=== PATIENT | female | born 1995 | race African-American/Black ===

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

== ENCOUNTER 2017-05-25 23:19 | Emergency (ER) | payer SELFPAY ==
[~2017-05-25] VITALS: Ht 157.5 cm; Wt 49.9 kg
[2017-05-25 23:50] LABS: BILIRUBIN,URINE NEGATIVE (NEG); GLUCOSE,URINE NEGATIVE (NEG); NITRITE,URINE NEGATIVE (NEG); PH,URINE 5.5; PROTEIN,URINE NEGATIVE (NEG-TRACE); UROBILINOGEN,URINE 0.2 mg/dL (0.2 mg/dL)
[2017-05-25 23:57] LABS: BASO % 1 % (0-3); EOS % 9 % (0-3); HEMATOCRIT 38.5 % (36.0-47.0); HEMOGLOBIN 12.2 g/dL (12.0-15.5); LYMPH # 2.7 x10^3/uL (1.0-4.8); LYMPH % 35 % (24-48); MEAN CORPUSCULAR HEMOGLOBIN 25 pg (25-35); MEAN CORPUSCULAR HGB CONC 32 g/dL (31-37); MEAN CORPUSCULAR VOLUME 78 fL (79-100); MONO % 6 % (0-9); NEUT % 49 % (31-73); PLATELET COUNT 307 x10^3/uL (140-400); RED BLOOD COUNT 4.94 x10^6/uL (3.50-5.40); RED CELL DISTRIBUTION WIDTH 14.2 % (11.5-14.5); WHITE BLOOD COUNT 7.7 x10^3/uL (4.0-11.0)
[2017-05-25 23:58] LABS: BACTERIA,URINE MODERATE /HPF (0-FEW); RBC,URINE OCC /HPF (0-2); SQUAMOUS EPITHELIAL CELL,UR MOD /LPF
[2017-05-26] MEDS ORDERED: CONTRAST GIVEN MC PRN
[2017-05-26] MEDS ORDERED: IOHEXOL 300 MG/ML 75 ML VIAL IV ONE
[2017-05-26 00:05] LABS: CREATININE 0.9 mg/dL (0.6-1.0); GFR 96.6; POTASSIUM 3.7 mmol/L (3.5-5.1)
[2017-05-26 00:11] LABS: ALBUMIN 3.8 g/dL (3.4-5.0); TOTAL BILIRUBIN 0.3 mg/dL (0.2-1.0); TOTAL PROTEIN 7.7 g/dL (6.4-8.2)
[2017-05-26] MEDS ORDERED: fentaNYL PF VIAL 100 MCG/2 ML VIAL IV ONE (00:30)
[2017-05-26] MEDS ORDERED: KETOROLAC 30 MG/ML INJ. IV ONE (00:30)
[2017-05-26] MEDS ORDERED: ONDANSETRON PF 4 MG/2 ML VIAL. ONE (00:34)
[2017-05-26 00:45] VITALS: BP 126/78
[2017-05-26] MEDS ORDERED: ONDANSETRON PF 4 MG/2 ML VIAL. IV ONE (00:45)
--- NOTE | 2017-05-26 00:58 | RAD ---
INDICATION: rlq pain; Omni 300, 75ml COMPARISON: None. TECHNIQUE: Axial CT images were obtained through the abdomen and pelvis with intravenous contrast. One or more of the following individualized dose reduction techniques were utilized for this examination: 1. Automated exposure control; 2. Adjustment of the mA and/or kV according to patient size; 3. Use of iterative reconstruction technique. FINDINGS: Chest Base: Partially imaged without gross abnormality. Vessels: No abdominal aortic aneurysm. Liver/Biliary: No intrahepatic biliary duct dilation. Pancreas: No peripancreatic edema. Spleen: Normal. Kidneys/Adrenal: No hydronephrosis. Bladder: No definite adjacent inflammation. GI: No free air. No bowel dilation to suggest obstruction. 31 mm cystic lesion right adnexa. The appendix is partially seen and not grossly dilated in visualized portion. IMPRESSION: 1. No dilated loops of bowel to suggest obstruction. The suspected appendix is partially seen and does not appear grossly inflamed in the visualized portion. 2. Suspected cystic lesion of the right adnexa. 3. Moderate stool throughout the colon. Electronically signed by: Gino Ocasio MD (05/26/2017 12:54 AM) [facility]
[2017-05-26] MEDS ORDERED: ONDA4TAB10 PO (01:13)
[2017-05-26] MEDS ORDERED: HYDR-971 PO (01:13)
--- NOTE | 2017-05-26 01:13 | PHYS DOC ---
Past Medical History Past Medical History: Asthma, Other Additional Past Medical Histor: WPW Past Surgical History: No Surgical History Alcohol Use: Rarely Drug Use: Marijuana Adult General Chief Complaint Chief Complaint: ABDOMINAL PAIN HPI HPI Patient is a 22 year old female who is presenting to the emergency department for evaluation of right lower quadrant abdominal pain that has been going off and on for approximately 2 weeks. She says that she has intermittent nausea but no fevers chills dysuria hematuria vaginal bleeding vaginal discharge diarrhea constipation or prior abdominal surgeries. Patient says that she recently stopped taking control that does not think that she is . Patient has not been taking anything for pain. She says that the pain is not present and does not want anything for pain at this time. Review of Systems Review of Systems Constitutional: Denies fever or chills [] Cardiovascular: No additional information not addressed in HPI [] GI: + abdominal pain, nausea. No vomiting, bloody stools or diarrhea [] : Denies dysuria or hematuria [] Musculoskeletal: + back pain Current Medications Current Medications Current Medications Medications (Trade) Dose Ordered Sig/Jeffy Start Time Stop Time Status Last Admin Dose Admin Fentanyl Citrate (Fentanyl 2ml Vial) 50 mcg 1X ONCE 05/26/17 00:30 05/26/17 00:33 DC 05/26/17 00:42 50 MCG Info (Do NOT chart on this entry -- for MONITORING) 1 each PRN DAILY PRN 05/26/17 00:00 05/28/17 00:00 Iohexol (Omnipaque 300 Mg/ml) 75 ml 1X ONCE 05/26/17 00:00 05/26/17 00:01 DC 05/26/17 00:28 75 ML Ketorolac Tromethamine (Toradol) 30 mg 1X ONCE 05/26/17 00:30 05/26/17 00:33 DC 05/26/17 00:41 30 MG Ondansetron HCl (Zofran) 4 mg 1X ONCE 05/26/17 00:45 05/26/17 00:46 DC 05/26/17 00:41 4 MG Allergies Allergies Allergies Coded Allergies Type Severity Reaction Last Updated Verified No Known Drug Allergies 09/08/16 No Physical Exam Physical Exam Constitutional: Well developed, well nourished, no acute distress, non-toxic appearance. [] Cardiovascular:Heart rate regular rhythm, no murmur [] Lungs & Thorax: Bilateral breath sounds clear to auscultation [] Abdomen: Bowel sounds normal, soft, + RLQ AND R adnexal tenderness, no rebound or guarding, no masses, no pulsatile masses. [] Skin: Warm, dry, no erythema, no rash. [] Back: No tenderness, no CVA tenderness. [] Current Patient Data Vital Signs Vital Signs Date Time Temp Pulse Resp B/P (MAP) Pulse Ox O2 Delivery O2 Flow Rate FiO2 05/26/17 00:45 81 16 126/78 (94) 97 Room Air 05/25/17 23:25 98.1 98.1 Lab Values Laboratory Tests Test 05/25/17 23:20 05/25/17 23:44 05/25/17 23:51 Urine Collection Type Unknown Urine Color Yellow Urine Clarity Clear Urine pH 5.5 Urine Specific [place] 1.015 Urine Protein Negative mg/dL (NEG-TRACE) Urine Glucose (UA) Negative mg/dL (NEG) Urine Ketones (Stick) Negative mg/dL (NEG) Urine Blood Negative (NEG) Urine Nitrite Negative (NEG) Urine Bilirubin Negative (NEG) Urine Urobilinogen Dipstick 0.2 mg/dL (0.2 mg/dL) Urine Leukocyte Esterase Moderate (NEG) Urine RBC Occ /HPF (0-2) Urine WBC 5-10 /HPF (0-4) Urine Squamous Epithelial Cells Mod /LPF Urine Bacteria Moderate /HPF (0-FEW) Urine Mucus Mod /LPF POC Urine HCG, Qualitative Hcg negative (Negative) White Blood Count 7.7 x10^3/uL (4.0-11.0) Red Blood Count 4.94 x10^6/uL (3.50-5.40) Hemoglobin 12.2 g/dL (12.0-15.5) Hematocrit 38.5 % (36.0-47.0) Mean Corpuscular Volume 78 fL (79-100) L Mean Corpuscular Hemoglobin 25 pg (25-35) Mean Corpuscular Hemoglobin Concent 32 g/dL (31-37) Red Cell Distribution Width 14.2 % (11.5-14.5) Platelet Count 307 x10^3/uL (140-400) Neutrophils (%) (Auto) 49 % (31-73) Lymphocytes (%) (Auto) 35 % (24-48) Monocytes (%) (Auto) 6 % (0-9) Eosinophils (%) (Auto) 9 % (0-3) H Basophils (%) (Auto) 1 % (0-3) Neutrophils # (Auto) 3.8 x10^3uL (1.8-7.7) Lymphocytes # (Auto) 2.7 x10^3/uL (1.0-4.8) Monocytes # (Auto) 0.5 x10^3/uL (0.0-1.1) Eosinophils # (Auto) 0.7 x10^3/uL (0.0-0.7) Basophils # (Auto) 0.0 x10^3/uL (0.0-0.2) Sodium Level 138 mmol/L (136-145) Potassium Level 3.7 mmol/L (3.5-5.1) Chloride Level 102 mmol/L (98-107) Carbon Dioxide Level 28 mmol/L (21-32) Anion Gap 8 (6-14) Blood Urea Nitrogen 13 mg/dL (7-20) Creatinine 0.9 mg/dL (0.6-1.0) Estimated GFR (Cockcroft-Gault) 96.6 BUN/Creatinine Ratio 14 (6-20) Glucose Level 98 mg/dL (70-99) Calcium Level 9.0 mg/dL (8.5-10.1) Total Bilirubin 0.3 mg/dL (0.2-1.0) Aspartate Amino Transferase (AST) 14 U/L (15-37) L Alanine Aminotransferase (ALT) 21 U/L (14-59) Alkaline Phosphatase 105 U/L (46-116) Total Protein 7.7 g/dL (6.4-8.2) Albumin 3.8 g/dL (3.4-5.0) Albumin/Globulin Ratio 1.0 (1.0-1.7) Laboratory Tests 05/25/17 23:51 Laboratory Tests 05/25/17 23:51 EKG EKG [] Radiology/Procedures Radiology/Procedures INDICATION: rlq pain; Omni 300, 75ml COMPARISON: None. TECHNIQUE: Axial CT images were obtained through the abdomen and pelvis with intravenous contrast. One or more of the following individualized dose reduction techniques were utilized for this examination: 1. Automated exposure control; 2. Adjustment of the mA and/or kV according to patient size; 3. Use of iterative reconstruction technique. FINDINGS: Chest Base: Partially imaged without gross abnormality. Vessels: No abdominal aortic aneurysm. Liver/Biliary: No intrahepatic biliary duct dilation. Pancreas: No peripancreatic edema. Spleen: Normal. Kidneys/Adrenal: No hydronephrosis. Bladder: No definite adjacent inflammation. GI: No free air. No bowel dilation to suggest obstruction. 31 mm cystic lesion right adnexa. The appendix is partially seen and not grossly dilated in visualized portion. IMPRESSION: 1. No dilated loops of bowel to suggest obstruction. The suspected appendix is partially seen and does not appear grossly inflamed in the visualized portion. 2. Suspected cystic lesion of the right adnexa. 3. Moderate stool throughout the colon. Electronically signed by: Manuel Ocasio MD (05/26/2017 12:54 AM) [facility] DICTATED and SIGNED BY: MANUEL OCASIO MD DATE: 05/26/17 0046 Course & Med Decision Making Course & Med Decision Making Patient started getting some pain and nausea in the emergency department so she was given fentanyl Toradol and Zofran. Pain resolved and I reexamined her abdomen and she had no pain on repeat exam. She has no nausea or vomiting and her symptoms are not that severe so I do not think that she has torsion at this time. Certainly intermittent torsion is a possibility but there is no evidence of this. Patient does appear to have an ovarian cyst that is 3 mm in size on CT. Given patient appears well with normal vital signs benign repeat abdominal exam and workup she'll be discharged in stable condition with treatment for ovarian cyst and told to follow with a STAMP CLERK as soon as possible and come back to the ED sooner with worsening pain fevers vomiting or other general concerns. Patient aware and agreeable with plan and verbalized understanding of the above instructions. Dragon Disclaimer Dragon Disclaimer This electronic medical record was generated, in whole or in part, using a voice recognition dictation system. Departure Departure Impression: Primary Impression: Abdominal pain Additional Impression: Ovarian cyst Disposition: 01 HOME, SELF-CARE Condition: STABLE Referrals: DEQUAN ORTIZ Jr, MD Patient Instructions: Ovarian Cyst Additional Instructions: TAKE 400MG OF IBUPROFEN EVERY 6 HOURS AND THE NORCO FOR BREAKTHROUGH PAIN. COME BACK TO THE ED WITH WORSENING PAIN, FEVERS, VOMITING, OR OTHER GENERAL CONCERNS. THANK YOU! Scripts Ondansetron (ZOFRAN ODT) 4 Mg Tab.rapdis 4 MG PO BID Y for NAUSEA/VOMITING, #10 TAB Prov: PATITO BELL DO 05/26/17 Hydrocodone/Apap 5-325 (NORCO 5-325 TABLET) 1 Each Tablet 1 TAB PO PRN Q6HRS Y for PAIN, #10 TAB 0 Refills Prov: PATITO BELL DO 05/26/17 Problem Qualifiers Primary Impression: Abdominal pain Abdominal location: right lower quadrant Qualified Codes: R10.31 - Right lower quadrant pain PATITO BELL DO May 26, 2017 01:13
== END 2017-05-26 01:29 | disposition home or self-care (01) ==
LOC: ER 23:19
DX: N83.201 Unspecified ovarian cyst, right side (principal); J45.909 Unspecified asthma, uncomplicated; I45.6 Pre-excitation syndrome
CPT/HCPCS: 36415; 74177; 80053; 81001; 81025; 85025; 87086; 96374; 96375; 99285; J1885; J2405; J3010; Q9967

== ENCOUNTER 2017-07-27 14:28 | Emergency (ER) | payer SELFPAY ==
[~2017-07-27 14:28] MED LIST: HYDR-971 PO; ONDA4TAB10 PO
[2017-07-27 14:44] VITALS: BP 132/82
[2017-07-27] MEDS ORDERED: LIDOCAINE 1% / SOD BICARB 8.4% 20 ML VIAL. IJ ONE ×2 (14:50→15:00)
[2017-07-27] MEDS ORDERED: DIPHTH,PERTUSS(ACELL),TET TOX 0.5 ML DISP.SYRIN. VAX IM ONE (15:00)
[2017-07-27] MEDS ORDERED: HYDR-971 PO (15:13)
[2017-07-27] MEDS ORDERED: SULF1TAB24 PO (15:13)
--- NOTE | 2017-07-27 15:14 | PHYS DOC ---
Past Medical History Past Medical History: Asthma, Other Additional Past Medical Histor: WPW Past Surgical History: No Surgical History Alcohol Use: Rarely Drug Use: Marijuana Adult General Chief Complaint Chief Complaint: ABSCESS HPI HPI Patient is a 22 year old female who presents with an abscess on the left buttocks for the last 1 week. Patient states she's had similar abscess before. Patient denies any fever. Review of Systems Review of Systems Constitutional: Denies fever or chills [] Musculoskeletal: Denies back pain or joint pain [] Integument: abscess on the left buttocks Neurologic: Denies headache, focal weakness or sensory changes [] All other systems were reviewed and found to be within normal limits, except as documented in this note. Current Medications Current Medications Current Medications Medications (Trade) Dose Ordered Sig/Jeffy Start Time Stop Time Status Last Admin Dose Admin Diphtheria/ Tetanus/Acell Pertussis (Boostrix) 0.5 ml ONCE ONCE 07/27/17 15:00 07/27/17 15:01 DC Lidocaine/Sodium Bicarbonate (Buffered Lidocaine 1%) 20 ml STK-MED ONCE 07/27/17 14:50 07/27/17 14:51 DC Allergies Allergies Allergies Coded Allergies Type Severity Reaction Last Updated Verified No Known Drug Allergies 09/08/16 No Physical Exam Physical Exam Constitutional: Well developed, well nourished, no acute distress, non-toxic appearance. [] Skin: Warm, dry, and left buttock with an indurated erythematous area approximately 2 x 1 cm. The area is warm tender to touch and fluctuant. Back: No tenderness, no CVA tenderness. [] Extremities: No tenderness, no cyanosis, no clubbing, ROM intact, no edema. [] Neurologic: Alert and oriented X 3, normal motor function, normal sensory function, no focal deficits noted. [] Psychologic: Affect normal, judgement normal, mood normal. [] Current Patient Data Vital Signs Vital Signs Date Time Temp Pulse Resp B/P (MAP) Pulse Ox O2 Delivery O2 Flow Rate FiO2 07/27/17 14:44 97.7 72 18 97 Room Air 97.7 EKG EKG [] Radiology/Procedures Radiology/Procedures Indication:Left buttock abscess Procedure: The patient was positioned appropriately. Local anesthesia was 1% buffered lidocaine. An incision was then made over the apex of the lesion and mild amount of bloody yellow material was expressed. The drainage cavity was irrigated and packed with sterile gauze. The patients tetanus status updated as needed. The patient tolerated the procedure well. Complications: none.[] Course & Med Decision Making Course & Med Decision Making Pertinent Labs and Imaging studies reviewed. (See chart for details) Patient has left buttocks abscess that was drained and packed by me as noted in procedures. She does have cellulitis to the area. She was discharged with Bactrim and hydrocodone for pain. She is to return to the ED in 2 days for wound check and packing removal. Tetanus is up to date Dragon Disclaimer Dragon Disclaimer This electronic medical record was generated, in whole or in part, using a voice recognition dictation system. Departure Departure Impression: Primary Impression: Abscess of cellulitis of buttock Disposition: 01 HOME, SELF-CARE Condition: STABLE Referrals: NO PCP (PCP) Follow up with your own doctor or the emergency room in 2 days for wound check and packing removal Patient Instructions: Abscess, Care After Additional Instructions: You were seen for an abscess on the left buttocks that was drained in the emergency room packed. Keep the area clean and dry. Follow-up with the emergency room in 2 days or your own doctor if you have one for packing removal and wound check. Take the prescribed antibiotics as ordered. Come back to the ED at any point symptoms worsen. Scripts Hydrocodone/Apap 5-325 (NORCO 5-325 TABLET) 1 Each Tablet 1 TAB PO Q4-6HRS, #14 TAB Prov: EVERT COOPER APRN 07/27/17 Sulfamethoxazole/Trimethoprim (BACTRIM DS TABLET) 1 Each Tablet 1 TAB PO BID, #20 TAB Prov: EVERT COOPER APRN 07/27/17 EVERT COOPER APRN Jul 27, 2017 15:14
== END 2017-07-27 15:26 | disposition home or self-care (01) ==
LOC: ER 14:28
DX: L03.317 Cellulitis of buttock (principal); J45.909 Unspecified asthma, uncomplicated; F12.10 Cannabis abuse, uncomplicated
CPT/HCPCS: 10060; 99283-25

== ENCOUNTER 2017-12-03 04:22 | Emergency (ER) | payer SELFPAY | END 2017-12-03 05:22 | disposition home or self-care (01) | LOC: ER 04:22 | DX: T16.2XXA Foreign body in left ear, initial encounter (principal); J45.909 Unspecified asthma, uncomplicated; F12.10 Cannabis abuse, uncomplicated; X58.XXXA Exposure to other specified factors, initial encounter; Y93.89 Activity, other specified; Y99.8 Other external cause status; Y92.89 Other specified places as the place of occurrence of the external cause | CPT/HCPCS: 69200; 99284-25 ==